=== PATIENT | female | born 1990 | race Two or more races ===

== ENCOUNTER 2019-06-06 01:44 | Emergency (ER) | payer SELFPAY ==
[~2019-06-06] VITALS: Ht 157.5 cm; Wt 70.8 kg
--- NOTE | 2019-06-06 01:45 | NUR ---
ED Nurse Note: Patient was brought in by [id number] due to ETOH from the street. Patient is combative, aggresive and uncooperative. No SOB. Breathing even and unlabored. Afebrile. VSS.
[2019-06-06 01:50] VITALS: BP 128/67
--- NOTE | 2019-06-06 03:29 | Emergency Room Report ---
History of Present Illness General Chief Complaint: Alcohol Intoxication Source: EMS (Kailey Lundberg DO) Present Illness HPI Patient presents with complaints of alcohol intoxication by paramedics Patient was reported to have heavy odor of alcohol initially found by police department and paramedics contacted after Upon arrival the patient is extremely agitated yelling and cursing at the staff spitting at the staff Patient denies any vomiting denies any abdominal pain History of present illness is somewhat limited as the patient is very agitated (Kailey Lundberg DO) Allergies: Coded Allergies: No Known Allergies (Unverified , 06/06/19) Patient History Past Medical History: see triage record Now: No Reviewed Nursing Documentation: PMH: Agreed; PSxH: Agreed (Kailey Lundberg DO) Review of Systems All Other Systems: negative except mentioned in HPI (Kailey Lundberg DO) Physical Exam Vital Signs Date Time Temp Pulse Resp B/P (MAP) Pulse Ox O2 Delivery O2 Flow Rate FiO2 06/06/19 01:44 98.2 98 18 128/67 (87) 100 Room Air Sp02 EP Interpretation: reviewed, normal General Appearance: moderate distress - Yelling and screaming at staff also spitting Head: normocephalic, atraumatic Eyes: bilateral eye PERRL, bilateral eye EOMI ENT: normal pharynx Neck: supple Respiratory: lungs clear, no respiratory distress, no retraction Cardiovascular #1: regular rate, rhythm Gastrointestinal: non tender, soft Genitourinary: no CVA tenderness Musculoskeletal: normal inspection - Patient moving all extremities without focal deficit Neurologic: alert, responsive Skin: no rash Lymphatic: no adenopathy (Kailey Lundberg DO) Medical Decision Making Diagnostic Impression: Primary Impression: Alcohol abuse ER Course Given the patient's history and presentation multiple differentials are in consideration including but not limited to drug abuse alcohol abuse,, neurological neurosurgical emergencies, Patient remains well oriented speaks clearly However is fairly hostile to staff and did have odor of alcohol on her breath Patient was allowed to rest After further sobering patient is awake alert at this time ambulatory Speaking clearly And clinically appropriately sobered Patient reports that she does not have any family or friends to call and would like to leave the emergency room Patient was allowed to rest further and after further sobering, is able to be disposition under her own recognizance (Kailey Lundberg DO) ER Course Please see above note. Patient ambulatory away from purposeful denies suicidal or homicidal ideation. Advised to drink in moderation or not at all and to follow-up with her own doctor. Patient stable for outpatient observation and treatment. (Devon Smith MD) Last Vital Signs Date Time Temp Pulse Resp B/P (MAP) Pulse Ox O2 Delivery O2 Flow Rate FiO2 06/06/19 01:50 98 18 Room Air 06/06/19 01:50 98.2 128/67 100 Status: improved (Kailey Lundberg DO) Last Vital Signs Date Time Temp Pulse Resp B/P (MAP) Pulse Ox O2 Delivery O2 Flow Rate FiO2 06/06/19 08:30 97.9 85 18 108/69 100 Room Air Status: improved (Devon Smith MD) Disposition: HOME, SELF-CARE Condition: Improved Referrals: NOT CHOSEN IPA/,REFERRING (PCP) Additional Instructions: Patient is provided with the discharge instructions notified to follow up with primary doctor in the next 2-3 days otherwise return to the er with any worsening symptoms. Please note that this report is being documented using [employer] technology. This can lead to erroneous entry secondary to incorrect interpretation by the dictating instrument. Kailey Lundberg DO Jun 06, 2019 03:29 Devon Smith MD Jun 06, 2019 09:41
--- NOTE | 2019-06-06 05:14 | NUR ---
ED Nurse Note: Patient able to walk to the restroom with steady gait.
--- NOTE | 2019-06-06 07:12 | NUR ---
HAND-OFF: Report given to Kasandra MCGILL. No new further at this time. Endorsed plan of care.
[2019-06-06 08:30] VITALS: BP 108/69
--- NOTE | 2019-06-06 08:30 | NUR ---
ED Nurse Note: Patient at no distress at this time. patient was given water,juice and sandwich
--- NOTE | 2019-06-06 08:58 | NUR ---
ED Nurse Note: Sarahy Patel) called here and will picker tender patient ~ [phone]. Contact info [phone].
[2019-06-06 09:35] VITALS: BP 108/69
--- NOTE | 2019-06-06 09:35 | NUR ---
ER DISCHARGE NOTE: Patient is cleared to be discharged per ERMD, pt is aox4, on room air, with stable vital signs. pt was given dc instructions, pt was able to verbalize understanding, pt id band removed without complications. pt is able to ambulate with steady gait. pt took all belongings. Patient did not want to wait for boyfriend, states that she wants to go outside and wait for him there.
== END 2019-06-06 09:35 | disposition home or self-care (01) ==
LOC: EDBD 01:44 → EMR 02:11
DX: F10.10 Alcohol abuse, uncomplicated (principal); R45.1 Restlessness and agitation
CPT/HCPCS: 99283